=== PATIENT | female | born 1975 | race Two or more races ===

== ENCOUNTER 2025-04-14 17:35 | Emergency (ER) | payer OTHER, SELFPAY ==
[2025-04-14 17:37] VITALS: BMI 40.7
[2025-04-14 17:45] VITALS: BP 159/105; PULSE 75; RESP 18; TEMP 37.2; O2SAT 95
--- NOTE | 2025-04-14 17:48 | XR_ITS ---
Examination: CT abdomen and pelvis without contrast. Coronal 3-D reconstructions. Sagittal 2-D reconstructions. Date and time of exam:April 14, 2025 1833 hours INDICATIONS: Intermittent left-sided abdominal pain beginning 5 days ago CTDI: vol (mGy): 15.5 DLP: (mGycm): 969 Technique: Axial images of the abdomen have been obtained, 3 mm slice thickness Intravenous contrast material has not been administered. Low dose protocols were performed. One or more of the following dose reduction techniques were used; automated exposure control, adjustment of the mA and/or KV according to patient size, use of iterative reconstruction technique. Findings: Diffuse fatty infiltration throughout the liver No gallstones Suspicious for mild edema about the pancreas Spleen is not enlarged Coronal image 92 demonstrates 8 mm left renal artery aneurysm No hydronephrosis or ureteral calculi Aorta normal size Normal appendix No bowel obstruction 12 mm fat-containing umbilical hernia Scattered colonic diverticulosis, no diverticulitis Anteverted uterus Contracted urinary bladder The osseous structures are intact IMPRESSION: Suspicious for mild acute pancreatitis, recommend hepatobiliary sonography follow-up 8mm left renal artery aneurysm No hydronephrosis or ureteral calculi Normal appendix Colonic diverticulosis, no diverticulitis
--- NOTE | 2025-04-14 17:49 | PD.EDRME ---
Rapid Medical Screening Exam RME Arrival date/time: 04/14/25 17:35 This is a case of 49-year-old female who came in in the emergency room due to elevated lipase 563 patient was complaining of abdominal pain nausea vomiting for since Tuesday seen by the PCP and noted that the lipase was elevated thus the patient was sent here for further evaluation and treatment Chief Complaint: Recheck/Abnormal Lab/Rx Time Seen by Provider: 04/14/25 17:38 Vital signs: Vital Signs Temperature 98.9 F 04/14/25 17:45 Pulse Rate 75 04/14/25 17:45 Respiratory Rate 18 04/14/25 17:45 Blood Pressure 159/105 H 04/14/25 17:45 Pulse Oximetry (%) 95 04/14/25 17:45 Oxygen Delivery Method Room Air 04/14/25 17:45
[2025-04-14 18:11] LABS: Collection Type, Urine Clean Catch
[2025-04-14 18:17] LABS: Basophils # (Auto) 0.0 Thou/mm3 (0.0-0.2); Basophils % (Auto) 0 % (0-2.5); Eosinophils # (Auto) 0.5 Thou/mm3 (0.0-0.5); Eosinophils % (Auto) 5 % (0-10); Hematocrit 41.8 % (36.0-46.0); Hemoglobin 13.8 g/dL (12.0-16.0); Immature Granulocytes Auto 0.01 Thou/mm3 (0.00-0.00); Lymphocytes # (Auto) 2.4 Thou/mm3 (1.0-4.8); Lymphocytes % (Auto) 26 % (10-50); Mean Corpuscular HGB Conc 33.0 g/dl (31.0-37.0); Mean Corpuscular Hemoglobin 29.6 pg (25.0-35.0); Mean Corpuscular Volume 90 fL (80-100); Monocytes # (Auto) 0.8 Thou/mm3 (0.0-0.8); Monocytes % (Auto) 8 % (0-12); Neutrophils # (Auto) 5.6 Thou/mm3 (1.8-7.7); Neutrophils % (Auto) 60 % (37-80); Nucleated Red Blood Cell # 0.00 Thou/mm3 (0.00-0.00); Nucleated Red Blood Cell % 0 /100 WBC (0); Platelet Count 331 Thou/mm3 (140-440); RDW Standard Deviation 41.8 fL (36.4-46.3); Red Blood Count 4.66 Miln/mm3 (4.00-5.20); White Blood Count 9.3 Thou/mm3 (3.6-11.0)
[2025-04-14 18:20] LABS: HCG Qualitative,Urine Negative
[2025-04-14 18:25] LABS: Bacteria,Urine 1+; Bilirubin,Urine Negative (Negative); Blood,Urine 3+ (Negative); Clarity,Urine Turbid (Clear/Hazy); Color,Urine Yellow (Lt Yel-Yel); Glucose, Urine Negative (Negative); Hyaline Casts,Urine < 1 /hpf (0-1); Ketones,Urine Negative (Negative); Leukocyte Esterase,Urine Positive (Negative); Nitrite,Urine Negative (Negative); PH,Urine 6.5 (5.0-7.0); Protein,Urine 1+ (Neg - Trace); RBC,Urine 57 /hpf (0-3); Specific Gravity,Urine 1.033 (1.001-1.035); Squamous Epithelial Cell,Urine 20 /hpf (0-5); Urobilinogen,Urine Negative mg/dL (0.0-1.0); WBC,Urine 3 /hpf (0-5)
[2025-04-14 18:35] LABS: Alanine Aminotransferase 48 U/L (10-49); Albumin, Serum 4.2 gm/dL (3.5-5.0); Albumin/Globulin Ratio 1.2 (1.2-2.2); Alkaline Phosphatase 91 U/L (46-116); Anion Gap 8 (7-16); Aspartate Amino Transferase 33 U/L (0-34); BUN/Creatinine Ratio 13 Ratio (12-20); Bilirubin,Total 0.3 mg/dL (0.3-1.2); Blood Urea Nitrogen 9 mg/dL (9-23); Calcium 9.1 mg/dL (8.3-10.6); Calcium (Corrected) 9.1 mg/dL (8.5-10.1); Carbon Dioxide 25.6 mMol/L (20.0-31.0); Chloride 107 mMol/L (98-107); Creatinine (Component) 0.7 mg/dL (0.6-1.3); Estimated Creatinine Clearance 113.5 mL/min (>60); Globulin 3.5 gm/dL (2.3-3.5); Glucose 145 mg/dL (74-106); Lipase 86 U/L (12-53); Osmolality,Calculated 282 (275-295); Potassium 4.0 mMol/L (3.4-5.1); Sodium 141 mMol/L (136-145); Total Protein 7.7 gm/dL (5.7-8.2); eGFR > 60 See Note
[2025-04-14 20:36] VITALS: BP 142/81; PULSE 66; RESP 16; TEMP 37; O2SAT 95
--- NOTE | 2025-04-14 20:43 | XR_ITS ---
Examination: Abdomen sonogram, Limited Date and time of exam: April 14, 2025 1014 hours INDICATIONS: Generalized abdominal pain 1 week Technique: Real-time leavitt scale transabdominal sonographic images of the upper abdomen obtained. Findings: Negative for gallstones Gallbladder wall 0.3 cm no edema Common bile duct 0.4 cm Pancreatic head 2.4 cm Liver 18.5 cm no liver lesions Normal hepatopedal portal venous flow Patent IVC IMPRESSION: Negative for cholelithiasis, negative for cholecystitis Moderate hepatomegaly
--- NOTE | 2025-04-14 20:44 | PD.EDABDPN ---
ED Abdominal Pain RME/HPI General Chief Complaint: Recheck/Abnormal Lab/Rx Stated complaint: SENT BY PCP FOR HIGH LIPASE; L UPPER ABD PAIN Time seen by provider: 04/14/25 17:38 Arrival date/time: 04/14/25 17:35 RME / HPI RME / HPI narrative: 04/14/25 17:35 This is a case of 49-year-old female who came in in the emergency room due to elevated lipase 563 patient was complaining of abdominal pain nausea vomiting for since Tuesday seen by the PCP and noted that the lipase was elevated thus the patient was sent here for further evaluation and treatment DR. COX MAIN ED EVALUATION: 49 y/o female with Hx of Pancreatitis presents to ED c/o LUQ abdominal pain that radiates to the back and left shoulder x approximately 7 hours. Patient had an elevated Lipase level of 563 as an outpatient. Patient reports abdominal pain was more diffuse last week. Patient still has her gall bladder. Denies vomiting. Also denies any excessive alcohol use. No other concerns or complaints expressed at this time. Related Data Previous Rx's ?Medication ?Instructions ?Recorded dicyclomine 20 mg tablet 20 mg PO QID PRN abdominal pain 04/14/25 #20 tabs ondansetron 4 mg disintegrating 4 mg PO Q6H PRN nausea and 04/14/25 tablet vomiting #20 tabs Allergies Allergy/AdvReac Type Severity Reaction Status Date / Time No Known Allergies Allergy Verified 04/14/25 17:40 Review of Systems Review of Systems Systems Reviewed: All systems reviewed, normal except as documented Past Medical History Past Medical History GASTROINTESTINAL: Positive Pancreatitis ED Exam Narrative Physical exam: Generally patient is alert oriented x 3 in no obvious distress heart is regular rate rhythm lungs auscultation equal bilaterally abdomen soft bowel sounds present nondistended mild epigastric abdominal tenderness without rebound. Skin is warm pale and dry. Neurologic exam no focal motor or sensory deficits cranial nerves II through XII grossly intact. Course Quality Measures none Orders Category Date Time Status Insert IV NOW Care 04/14/25 20:[address] abdomen pelvis wo con Stat Exams 04/14/25 17:48 Completed EKG (ED Only) Stat Exams 04/14/25 17:39 Stop Req US gall bladder Stat Exams 04/14/25 20:43 Completed CBC Stat Lab 04/14/25 18:05 Completed Comprehensive Metabolic Panel Stat Lab 04/14/25 18:05 Completed HCG Qualitative,Urine Stat Lab 04/14/25 18:01 Completed Lipase Stat Lab 04/14/25 18:05 Completed Urinalysis Stat Lab 04/14/25 18:01 Completed Ketorolac Inj [Toradol Inj] Med 04/14/25 20:43 Discontinued 30 mg IVP X1 ONE Vital Signs Vital signs: Vital Signs Temperature 98.9 F 04/14/25 17:45 Pulse Rate 75 04/14/25 17:45 Respiratory Rate 18 04/14/25 17:45 Blood Pressure 159/105 H 04/14/25 17:45 Pulse Oximetry (%) 95 04/14/25 17:45 Oxygen Delivery Method Room Air 04/14/25 17:45 Abdominal Pain MDM MDM Narrative MDM Narrative:: Scribe Attestation: I, Ayana Amato, am scribing for and in the presence of Dr. Cox. Provider Notation: Although this document has been carefully reviewed, there may still be some phonetic and other typographical errors.? These errors are purely grammatical due to imperfections in the software program and should not be construed in any way to? compromise the substance of the patient's medical care during this visit. Patient's gallbladder ultrasound was unremarkable. CT scan done the abdomen pelvis without contrast showed mild peripancreatic inflammation. Lipase was 86 today reportedly down from over 500 several days ago with outpatient labs according to the patient. Patient is in no obvious distress. Patient is stable for discharge. Patient will be discharged on Bentyl and Zofran to be taken as prescribed. Follow-up with her doctor. Return to ER as needed or if condition worsens. Patient data External records reviewed:: [facility] previous records (No recent ED records available for review.) Clinical information provided by:: patient Social determinants that could affect healthcare access:: alcohol use Patient has the following chronic illnesses:: Pancreatitis How is presenting disease/condition affected by chronic disease/condition?: exacerbated by Evaluation data The following diagnostics were reviewed and interpreted by me:: lab results, radiology exam(s) and EKG tracing(s) Lab and/or radiology exams considered but not ordered:: None Interpretation Summary: RADIOLOGY Abdomen/Pelvis CT: Findings: Diffuse fatty infiltration throughout the liver No gallstones Suspicious for mild edema about the pancreas Spleen is not enlarged Coronal image 92 demonstrates 8 mm left renal artery aneurysm No hydronephrosis or ureteral calculi Aorta normal size Normal appendix No bowel obstruction 12 mm fat-containing umbilical hernia Scattered colonic diverticulosis, no diverticulitis Anteverted uterus Contracted urinary bladder The osseous structures are intact IMPRESSION: Suspicious for mild acute pancreatitis, recommend hepatobiliary sonography follow-up 8mm left renal artery aneurysm No hydronephrosis or ureteral calculi Normal appendix Colonic diverticulosis, no diverticulitis Medications / Prescriptions Medications or Prescriptions considered but not ordered:: None Medication administrations:: Medication Administration History Discontinued Medications Ketorolac Tromethamine (Ketorolac Inj 30 Mg/Ml Vial) 30 mg IVP X1 ONE Stop: 04/14/25 20:44 Last Admin: 04/14/25 20:58 Dose: 30 mg Documented By: JOBY See above Consultations Consultation(s) initiated? (list below): No Diagnosis Differential diagnosis abdominal pain: abdominal pain, calculus of kidney, gastroenteritis and pancreatitis Most likely diagnosis given after review of the tests above:: None Admission Indicated Admission indicated?: not indicated Admission Request Was there a request for admission?: No Disposition Plan Disposition Plan: Discharge Discharge Attestation Discharge Attestation: The patient and all family members were given an opportunity to ask questions and understood the discharge instructions. Discharge instructions specifically effects, indications for sooner follow up or return to the emergency department, and the expected course of current diagnosis. Patient condition: Stable Discharge Plan Plan Patient Disposition: HOME (Self Care) Prescriptions/Referrals Prescriptions/Med Rec: New dicyclomine 20 mg tablet 20 mg PO QID PRN (Reason: abdominal pain) Qty: 20 0RF ondansetron 4 mg tablet,disintegrating 4 mg PO Q6H PRN (Reason: nausea and vomiting) Qty: 20 0RF Referrals: Tiffanie Aj MD [Primary Care Provider] - In 1 week Problem List Clinical Impression: Pancreatitis Patient/Caregiver Discharge Instructions Additional Instructions: Medications as prescribed. Follow-up with your doctor. Return to ER as needed or if condition worsens. Print Language: Korean Stand Alone Forms: Tania Award Info., Patient Portal Info Letter
[2025-04-14] MEDS: KETOROLAC INJ 30 MG/ML VIAL IVP (20:58)
[2025-04-14 22:51] VITALS: BP 136/95; PULSE 65; RESP 18; TEMP 36.7; O2SAT 94
== END 2025-04-14 23:50 | disposition home or self-care (01) ==
PROVIDERS: Nurse Practitioner Family; Emergency Provider Emergency Medicine; PCP Family Medicine
DX: K85.90 Acute pancreatitis without necrosis or infection, unspecified (principal); I72.2 Aneurysm of renal artery; K57.30 Diverticulosis of large intestine without perforation or abscess without bleeding
CPT/HCPCS: 36415; 74176; 76705; 80053; 80307; 81001; 81025; 82550; 83690; 83880; 84484; 85025; 96374; 99283; J1885